=== PATIENT | male | born 2000 | race Two or more races ===

== ENCOUNTER → 2021-04-17 11:47 | Outpatient (CLI) | payer OTHER, SELFPAY | PROVIDERS: Visit Provider Family Medicine | DX: Z23 Encounter for immunization (principal) ==

== ENCOUNTER 2021-05-31 23:52 | Emergency (ER) | payer OTHER, SELFPAY ==
[2021-05-31 23:54] VITALS: BP 111/72; PULSE 78; RESP 16; TEMP 35.7; O2SAT 98; BMI 23.1
--- NOTE | 2021-06-01 00:11 | EX.ED.SAOD ---
HPI History of Present Illness Chief Complaint: ETOH Intox Narrative Narrative: 20-year-old male presenting after a libertarian where he admits to drinking a lot of vodka and is now intoxicated and vomiting. Patient reports he has not been injured in any way. He states he was intoxicated and found outside after drinking. He denies other drug use. Patient has no pain. He is responding to questioning. PFSH PFSH Family History no significant family his Social History Smoking Status: Never smoker ROS ROS ED Constitutional Constitutional ED: Denies chills, fever(s) or sweats Eyes Eyes: Denies blurry vision or diplopia ENT ENT ED: Denies rhinorrhea or sore throat Cardiovascular Cardiovascular: Denies chest pain or palpitations Respiratory/Chest Respiratory/Chest: Denies cough, dyspnea or sputum Gastrointestinal Gastrointestinal: Reports nausea and vomiting; Denies abdominal pain Genitourinary Genitourinary ED: Denies dysuria or urinary frequency Musculoskeletal Musculoskeletal: Denies arthralgias, back pain, myalgias or neck pain Integumentary Denies abscess or rash Neurologic Neurologic: Denies headache(s) or weakness EXAM Physical Exam Const Vital Signs: 05/31/21 23:54 06/01/21 00:31 06/01/21 01:05 Temperature 96.2 F L Temperature Source Temporal Pulse Rate 78 62 Respiratory Rate 16 15 Respiratory Effort Normal Respiratory Pattern Normal Blood Pressure 111/72 104/64 Blood Pressure Mean 85 77 Pulse Ox 98 98 Oxygen Delivery Method Room Air 06/01/21 03:08 Temperature Temperature Source Pulse Rate 68 Respiratory Rate 16 Respiratory Effort Respiratory Pattern Blood Pressure 110/64 Blood Pressure Mean Pulse Ox 98 Oxygen Delivery Method Positive well nourished General Appearance ED: NAD; Negative for pallor HEENT Reports moist mucous membranes atraumatic Eyes PERRL and EOMs intact bilaterally General Eye ED: Negative for pale conjunctiva or scleral icterus Neck No no lymphadenopathy and No supple Chest Wall Negative for inspection of chest normal or palpation of chest normal Resp normal respiratory effort and clear to auscultation bilaterally Cardio regular rate and regular rhythm GI soft to palpation, non-tender and non-distended Back/Spine Cervical Spine: Negative for cervical spine tenderness Thoracic Spine / Upper Back: Negative for thoracic spinal tenderness Lumbar Spine / Lower Back: Negative for lumbar spinal tenderness Neuro oriented x3 and CN's II-XII intact bilaterally Neuro Narrative: Appears intoxicated [place] Coma Scale: document GCS findings Spontaneous Obeys Commands Confused 14 Sensorium / Orientation: alert Psych mental status grossly normal Skin General Skin Exam: Negative for jaundice or pallor Lesions: no lesions Rashes: no rashes MDM MDM MDM Narrative Medical decision making narrative: Patient presents with alcohol intoxication. His vital signs are stable and he is afebrile. He is responding to questioning but appears intoxicated. He does have a friend at the bedside. There is no report of any trauma. Patient has no evidence of trauma to him. He is alert and talking with short responses. We will have the patient sleep for now overnight and reevaluate in the morning. He was given Zofran for nausea since he has vomit on his shirt. Patient awake and alert at 3 AM. He request to be discharged home. He has a stable gait. He has a sober ride. I will discharge him home in the care of this right. Impression: 1. EtOH intoxication Lab Data Attestation: I reviewed the patient's lab results. Discharge Plan Triage Chief Complaint: ETOH Intox ED Provider: Bishop Squires Dx/Rx/DC Orders Instructions: ED Alcohol Intoxication, ED Vomiting (Adult) Primary Care Provider: Care Physician,No Primary Referrals: Olimpia Pimentel MD [STAFF PHYSICIAN] - As Needed Care Physician,No Primary [Primary Care Provider] - Disposition Disposition: Home, Self Care
[2021-06-01 01:05] VITALS: BP 104/64; PULSE 62; RESP 15; O2SAT 98
[2021-06-01 03:08] VITALS: BP 110/64; PULSE 68; RESP 16; O2SAT 98
[2021-06-01 06:40] VITALS: RESP 16
== END 2021-06-01 07:50 | disposition home or self-care (01) ==
PROVIDERS: Emergency Provider Student in an Organized Health Care Education/Training Program; Visit Provider Student in an Organized Health Care Education/Training Program
DX: F10.129 Alcohol abuse with intoxication, unspecified (principal); Y90.9 Presence of alcohol in blood, level not specified
CPT/HCPCS: 99284